=== PATIENT | female | born 1955 | race Caucasian/White ===

== ENCOUNTER → 2021-03-30 | Outpatient (CLI) | payer MEDICARE, OTHER ==
[2021-03-31 08:14] LABS: RHEUMATOID ARTHRITIS FACTOR 12.8 IU/mL (0.0-13.9); VITAMIN D, 25-HYDROXY 6.3 ng/mL (30.0-100.0)
== END ==
LOC: LAB 12:52
PROVIDERS: Nurse Practitioner Family
DX: R53.83 Other fatigue (principal); D89.9 Disorder involving the immune mechanism, unspecified; M25.50 Pain in unspecified joint; R76.8 Other specified abnormal immunological findings in serum
CPT/HCPCS: 36415; 73565; 83520; 85652; 86140; 86200; 86431